=== PATIENT | male | born 1965 ===

== ENCOUNTER 2018-07-22 15:03 | Emergency (ER) | payer SELFPAY ==
[2018-07-22 15:10] VITALS: RESP 18
--- NOTE | 2018-07-22 15:22 | C.PDOC ---
- HPI Time Seen by Provider: 07/22/18 15:13 Chief Complaint (Nursing): Trauma Past Medical History Vital Signs: Last Vital Signs Temp 98.4 F 07/22/18 15:07 Pulse 73 07/22/18 15:07 Resp 18 07/22/18 15:07 BP 149/88 07/22/18 15:07 Pulse Ox 99 07/22/18 15:07 Surgical History: Appendectomy - Social History Hx Alcohol Use: Yes Hx Substance Use: No - Immunization History Hx Tetanus Toxoid Vaccination: No Hx Influenza Vaccination: No Hx Pneumococcal Vaccination: No ED Course And Treatment O2 Sat by Pulse Oximetry: 99 Disposition - Disposition Forms: [employer] (Mauritanian)
[2018-07-22] MEDS ORDERED: Naproxen 550 mg Tab PO STA (15:34)
--- NOTE | 2018-07-22 15:39 | C.PDOC ---
History Of Present Illness 52 y/o male presents to the ED for evaluation of arm and back pain s/p slip and fall yesterday. States he was going down an escalator and fell, injuring his right arm and back. He denies any LOC or head trauma. Patient also sustained abrasion to his right thumb. Denies any paresthesais, numbness, weakness, urinary symptoms, dizziness, or headache. Pain is rated a 6/10. Time Seen by Provider: 07/22/18 15:13 Chief Complaint (Nursing): Trauma History Per: Patient History/Exam Limitations: no limitations Onset/Duration Of Symptoms: Days (1) Current Symptoms Are (Timing): Still Present Severity: Moderate Pain Scale Rating Of: 6 Past Medical History Reviewed: Historical Data, Nursing Documentation, Vital Signs Vital Signs: Last Vital Signs Temp 98.4 F 07/22/18 15:07 Pulse 73 07/22/18 15:07 Resp 18 07/22/18 15:07 BP 149/88 07/22/18 15:07 Pulse Ox 99 07/22/18 15:07 - Medical History PMH: No Chronic Diseases Surgical History: Appendectomy Family History: States: No Known Family Hx - Social History Hx Alcohol Use: Yes Hx Substance Use: No - Immunization History Hx Tetanus Toxoid Vaccination: No Hx Influenza Vaccination: No Hx Pneumococcal Vaccination: No Review Of Systems Constitutional: Negative for: Fever Cardiovascular: Negative for: Chest Pain Respiratory: Negative for: Shortness of Breath Gastrointestinal: Negative for: Abdominal Pain Musculoskeletal: Positive for: Arm Pain, Back Pain, Hand Pain (right thumb) Skin: Positive for: Lesions (right thumb abrasion) Neurological: Negative for: Weakness, Numbness, Headache, Dizziness Physical Exam - Physical Exam Appears: Non-toxic, No Acute Distress Skin: Warm, Dry Head: Atraumatic, Normacephalic Eye(s): bilateral: Normal Inspection, PERRL, EOMI Oral Mucosa: Moist Neck: Normal ROM Chest: Symmetrical Respiratory: No Accessory Muscle Use, Other (No respiratory distress) Gastrointestinal/Abdominal: Soft, No Tenderness, No Distention Back: No Vertebral Tenderness, No Decreased ROM, Paraspinal Tenderness (paralumbar tenderness) Extremity: Normal ROM (with full ROM of the right arm and shoulder), Tenderness (to right arm), Other (Superficial abrasion to right 1st digit; Limited ROM to right 1st digit secondary to pain) Extremity: Bilateral: Normal Color And Temperature Pulses: Left Radial: Normal, Right Radial: Normal Neurological/Psych: Oriented x3, Normal Motor, Normal Sensation ED Course And Treatment O2 Sat by Pulse Oximetry: 99 (RA) Pulse Ox Interpretation: Normal - Other Rad LS spine XR X-Ray: Read By Radiologist Interpretation: Accession No. : [id number]. Patient Name / ID : CYNTHIA KING / [id number]. Exam Date : 07/22/2018 15:47:45 ( Approved ). Study Comment : Sex / Age : M / 52Y. Creator : Marta Dickey MD. Dictator : Marta Dickey MD. Rubble Placer : Supervisor Prop Making : Marta Dickey MD. Approver2 : Report Date : 07/22/2018 16:06:57. My Comment : . Date of service: 07/22/2018. PROCEDURE: Radiographs of the Lumbar Spine. HISTORY: s/p fall. COMPARISON: None available. FINDINGS: BONES: Mild curvature of the lumbar spine convex to the right. Alignment appears otherwise satisfactory. No listhesis. No acute displaced fracture identified. Mild degenerative changes including small anterior osteophyte formation. DISC SPACES: Unremarkable. OTHER FINDINGS: None. IMPRESSION: Mild curvature of the lumbar spine convex to the right. Mild degenerative changes including small anterior osteophyte formation. Otherwise unremarkable study as above. R Hand XR X-Ray: Read By Radiologist Interpretation: Accession No. : [id number]. Patient Name / ID : CYNTHIA KING / [id number]. Exam Date : 07/22/2018 15:43:49 ( Approved ). Study Comment : Sex / Age : M / 52Y. Creator : Marta Dickey MD. Dictator : Marta Dickey MD. Rubble Placer : Supervisor Prop Making : Marta Dickey MD. Approver2 : Report Date : 07/22/2018 16:11:21. My Comment : . Date of service: 07/22/2018. PROCEDURE: Right Thumb radiographs. HISTORY: s/p fall. COMPARISON: None available. TECHNIQUE: AP radiograph of the right hand, as well as spot oblique and lateral images of thumb were obtained. FINDINGS: RIGHT THUMB: Nondisplaced fracture of the proximal aspect distal 1st phalanx with intra-articular extension. Remainder of the right hand (as seen on the AP view) grossly unremarkable. JOINTS: No dislocation. SOFT TISSUES: Soft tissue swelling. No evidence of radiopaque foreign body. OTHER FINDINGS: None. IMPRESSION: Nondisplaced fracture of the proximal aspect distal 1st phalanx with intra-articular extension. Soft tissue swelling. Medical Decision Making Medical Decision Making: Initial Plan: - LS spine x-ray - Right hand x-ray - 550 mg PO Naproxen Of note, patient cannot recall his last Tetanus booster. Will give Tdap booster today. Imaging reviewed, shows acute fracture of the distal phalanx of right 1st digit. Reviewed x-ray with ED attending Dr. King, who recommends thumb SPICA splint. Thumb SPICA placed to right 1st digit by ED CP, and approved by me. Disposition Counseled Patient/Family Regarding: Studies Performed, Diagnosis, Need For Followup, Rx Given - Disposition Referrals: [facility] [Outside] [facility] [place] [Outside] Disposition: HOME/ ROUTINE Disposition Time: 16:40 Condition: IMPROVED Additional Instructions: CHRISTINE SIMON, thank you for letting us take care of you today. Your provider was Paco King MD and you were treated for FALL/RT HAND PAIN. The emergency medical care you received today was directed at your acute symptoms. If you were prescribed any medication, please fill it and take as directed. It may take several days for your symptoms to resolve. Return to the Emergency Department if your symptoms worsen, do not improve, or if you have any other problems. Please contact your doctor or call one of the physicians/clinics you have been referred to that are listed on the Patient Visit Information form that is in cluded in your discharge packet. Bring any paperwork you were given at discharge with you along with any medications you are taking to your follow up visit. Our treatment cannot replace ongoing medical care by a primary care provider outside of the emergency department. Thank you for allowing the [facility] team to be part of your care today. Prescriptions: RX: Naproxen [Naprosyn] 500 mg PO BID #30 tablet Instructions: Lumbar Muscle Strain (DC), Finger Fracture (DC) Forms: [employer] (Greenlandic) - Clinical Impression Clinical Impression: Fracture of thumb, right, closed, Lumbar spine strain - PA / FOOD MIXER / Resident Statement MD/DO has reviewed & agrees with the documentation as recorded. - Scribe Statement The provider has reviewed the documentation as recorded by the Angeloibnaheed Jiménez All medical record entries made by the Angeloibnaheed were at my direction and personally dictated by me. I have reviewed the chart and agree that the record accurately reflects my personal performance of the history, physical exam, medical decision making, and the department course for this patient. I have also personally directed, reviewed, and agree with the discharge instructions and disposition.
[2018-07-22] MEDS ORDERED: Naproxen 550 mg Tab PO ONE (15:50)
--- NOTE | 2018-07-22 16:10 | RAD ---
Date of service: 07/22/2018 PROCEDURE: Radiographs of the Lumbar Spine. HISTORY: s/p fall COMPARISON: None available. FINDINGS: BONES: Mild curvature of the lumbar spine convex to the right. Alignment appears otherwise satisfactory. No listhesis. No acute displaced fracture identified. Mild degenerative changes including small anterior osteophyte formation. DISC SPACES: Unremarkable. OTHER FINDINGS: None. IMPRESSION: Mild curvature of the lumbar spine convex to the right. Mild degenerative changes including small anterior osteophyte formation. Otherwise unremarkable study as above.
--- NOTE | 2018-07-22 16:15 | RAD ---
Date of service: 07/22/2018 PROCEDURE: Right Thumb radiographs. HISTORY: s/p fall COMPARISON: None available. TECHNIQUE: AP radiograph of the right hand, as well as spot oblique and lateral images of thumb were obtained. FINDINGS: RIGHT THUMB: Nondisplaced fracture of the proximal aspect distal 1st phalanx with intra-articular extension. Remainder of the right hand (as seen on the AP view) grossly unremarkable. JOINTS: No dislocation. SOFT TISSUES: Soft tissue swelling. No evidence of radiopaque foreign body. OTHER FINDINGS: None. IMPRESSION: Nondisplaced fracture of the proximal aspect distal 1st phalanx with intra-articular extension. Soft tissue swelling.
[2018-07-22] MEDS ORDERED: Tdap Vaccine 0.5 ml Vial (10-64 yrs) IM ONE (16:24)
[2018-07-22] MEDS ORDERED: Tetanus/Diphtheria Toxoids 0.5 ml Syringe IM ONE (16:50)
[2018-07-22 16:52] VITALS: BP 135/86; PULSE 59; TEMP 97.6
[2018-07-22 16:53] VITALS: O2SAT 99
== END 2018-07-22 16:52 | disposition home or self-care (01) ==
LOC: C.ER 15:03
DX: S62.514A Nondisplaced fracture of proximal phalanx of right thumb, initial encounter for closed fracture (principal); S39.012A Strain of muscle, fascia and tendon of lower back, initial encounter; W10.0XXA Fall (on)(from) escalator, initial encounter